=== PATIENT | male | born 1990 | race Hispanic/Latino ===

== ENCOUNTER 2023-12-01 20:41 | Emergency (ER) | payer SELFPAY ==
[2023-12-01] VITALS (7 sets, daily range): BP systolic 150–199; BP diastolic 103–124
--- NOTE | 2023-12-01 21:31 | ED.GENMED ---
History of Present Illness
General
Chief Complaint: Headache
Source: patient
Exam Limitations: none
Time Seen by Provider: 12/01/23 21:03
Travel History
Have you had any contact with someone who has COVID-19?: No
Do you have any symptoms of coronavirus? Fever > 100 degrees, chills, cough, shortness of breath, sore throat, loss of taste or smell, muscle aches, or headache?: No
History of Present Illness
History of Present Illness:
This is a 33 year old male that comes in with c/o headache. States that he also thinks his BP is elevated. States that he started with a headache on Monday night and it has not gone away. States that he has had headaches before but not like this.
States that the pain is in the Temporal area. States that light and sound really do not bother him. States that he use to take Lisinopril 40mg daily for his BP but he has been off this for a year. Denies any fever, chills, chest pain, SOB, abd
pain, nausea, vomiting, diarrhea, dizziness, urinary burning.
Past History
Past History
ED Past Medical History: HTN and NIDDM; Negative Asthma or [place]
ED Past Surgical History: Other (Gastric bypass, Umbilical hernia)
Social History
Tobacco: Non-smoker
Alcohol: None
Drug: None
Personal:
Living: with family
Employment: Other
Family History
Family History: Other
Review of Systems
Review of Systems
All Other Systems: ROS reviewed and negative except as documented in HPI and ROS
Constitutional: Reports no symptoms; Denies fever or chills
EENT: Reports no symptoms
Respiratory: Reports no symptoms; Denies cough or trouble breathing
Cardiac: Reports no symptoms; Denies chest pain
ABD/GI: Reports no symptoms; Denies abdominal pain, nausea, vomiting or diarrhea
: Reports no symptoms; Denies dysuria, frequency or urgency
Musculoskeletal: Reports no symptoms
Skin: Reports no symptoms
Neurological: Reports headache; Denies dizzy
Psychiatric: Reports no symptoms
Phy Exam
General Physical Exam
General Presentation: mild distress
General age: appears stated age
General Skin: warm and dry
General Habitus: normal
General Mental: alert
General Hydration: appears well hydrated
ENT Exam
ENT Exam: TM's normal, pharynx normal and neck supple
Eye Exam
Eye Exam: EOMI
Cardiovascular Exam
Cardiovascular Exam: regular rate/rhythm, no edema, no murmur and normal peripheral pulses
Pulmonary Exam
Pulmonary Exam: lungs clear, no respiratory distress, no rales, chest non tender, no crackles, no rhonchi, no wheezing and no cough
Gastrointestinal Exam
Gastrointestinal Exam: normal bowel sounds, non tender, soft, no organomegaly, no pulsatile mass and non distended
Musculoskeletal Exam
Musculoskeletal Exam: full ROM and no edema
Skin Exam
Skin Exam: normal color, warm/dry, no rash and no petechia
Psychiatric Exam
Psychiatric Exam: normal mood/affect
Course
Orders/Labs/Results
Orders:
Orders
12/01/23 21:30
CT Head W/o Iv Contrast Urgent
Comment:
Reason For Exam: Headache since Monday
Acetaminophen [Tylenol] 1,000 mg PO NOW STA
HydrALAZINE [Apresoline] 5 mg IV NOW STA
12/01/23 21:31
Lisinopril [Zestril] 20 mg PO NOW STA
12/01/23 21:40
Dexamethasone Sod Phosphate [Decadron] 20 mg IV NOW STA
Diphenhydramine [Benadryl] 25 mg IV NOW STA
12/01/23 21:46
Electrocardiogram (*1) Urgent
Reason for Study: Hypertension, Benign
EKG- Treatment ONCE
12/01/23 21:52
C-Reactive Protein Urgent
Comment: ADD ON
Complete Blood Count/With Diff Urgent
Comprehensive Metabolic Panel Urgent
Sed Rate [Erythrocyte Sed Rate] Urgent
12/01/23 22:37
Add On- LAB Urgent
Comments:: blood in lab
Tests Added?: crp
12/01/23 22:38
HydrALAZINE [Apresoline] 10 mg IV NOW STA
12/01/23 22:42
HydrALAZINE [Apresoline] 20 mg .ROUTE .STK-MED ONE
12/01/23 22:43
HydrALAZINE [Apresoline] 5 mg IV NOW STA
12/01/23 23:27
Lisinopril [Zestril] 20 mg PO NOW STA
Abnormal Lab Results
12/01/23
21:52
MPV 10.6 H fL
(7.4-10.4)
Absolute Monos (auto) 0.7 H 10^3/uL
(0.1-0.6)
12/01/23 21:52
12/01/23 21:52
labs unremarkable. Sed rate normal at 5, CRP <5.0
Vital Signs
Initial and Last Documented VS:
Initial Vital Signs
Temp Pulse Resp BP Pulse Ox
98.3 F 82 18 199/122 100
12/01/23 20:44 12/01/23 20:44 12/01/23 20:44 12/01/23 20:44 12/01/23 20:44
Last Documented Vital Signs
Temp Pulse Resp BP Pulse Ox
98.3 F 72 18 150/103 98
12/01/23 20:44 12/01/23 22:00 12/01/23 20:44 12/01/23 23:00 12/01/23 22:00
MDM/Problems Addressed
Differential Diagnosis Includes:
Hypertension, Headaches,
MDM/Problems Addressed:
This is a 33 year old male that comes in with c/o headache since Monday. States that he has had headaches before but they normally go away. This has not gone away. States that he feels that his BP is also elevated. Patient stopped his Lisinopril
40mg daily a year ago.
Will check labs. CT head and medicate to get BP down.
Back into see patient. Patient was sleeping. Awakened and states that his headache is better. Explained that his BP is down to 157/107. Will give Lisinopril 20mg now as patient was taking 40mg in the past. Will recheck BP and if his Diastolic is
lower will discharge home. Explained to patient how to check his BP at home and to return if his Diastolic is again elevated.
Chronic conditions affecting care: HTN
Acute Exacerbation and/or Progression of Chronic Illness: HTN
*Radiology
Radiology exam reviewed: radiology read reviewed (CT head -No acute intracranial abnormality. )
*Pulse Oximetry
Patient hypoxic: no
*Program Analyst Interpretation
Rate: Program Analyst- N/A
*Critical Care Note
Total Time (30-74mins, 75-104mins- exclusive of procedures): Not Applicable
ED Attending Note
-
Portions of this chart may have been created with voice recognition software.� Occasional wrong word or��sound alike� substitutions may have occurred due to the inherent limitations of voice recognition software.
Discharge Plan
Departure
Patient Disposition: Home (Routine Discharge)
Date of Disposition: 12/02/23
Time of Disposition: 00:04
Patient with high blood pressure during this ER visit?: Yes
Condition: Good
Covid-19: Not Applicable
Discharge Problem:
Headache, Hypertension
Instructions: High Blood Pressure (DC), Headache, Adult (DC), BLOOD PRESSURE
Prescriptions:
New
lisinopril 40 mg tablet
40 mg PO DAILY Qty: 30 0RF
No Action
penicillin V potassium 500 mg tablet
500 mg PO TID 10 Days Qty: 29 0RF
Referrals:
NONE,* [Family Provider] -
Activity Restrictions/Additional Instructions:
As discussed, your blood work is normal along with the CT of the head. Your BP was every elevated and you have been given medication to help this come down. You also have a prescription for Lisinopril 40mg to use daily. Please follow up with the
family doctor in 2-3 days for recheck. Please check your BP at home after sitting for 5 min in a chair with feet flat on the floor and arm extended ad level with the heart. Please increase your water intake to 8-8oz glasses daily. Please watch your
sodium intake as this will also elevate your BP. PLEASE DO NOT USE ANY ALEVE, ADVIL OR MOTRIN THIS WILL ALSO INCREAES YOUR BLOOD PRESSURE. IF YOU HAVE ANY OTHER CONCERNS PLEASE RETURN TO THE EMERGENCY ROOM.
Interventions
Interventions:
*Risk Screen - Suicide Last Done: 12/01/23 21:54
*General Assessment Last Done: 12/01/23 21:54
*Neglect/Abuse Screening Last Done: 12/01/23 21:54
*ED COVID-19 Vaccine History Last Done: 12/01/23 21:54
ED- Neurological Assessment Last Done: 12/01/23 21:54
Discharge Date and Time
Print Language: FRENCH
[2023-12-01] MEDS: DECADRON 20 MG IV (21:44)
[2023-12-01] MEDS: BENADRYL 25 MG IV (21:44)
[2023-12-01] MEDS: ZESTRIL 20 MG PO ×2 (21:44→23:33)
[2023-12-01] MEDS: APRESOLINE 5 MG IV ×2 (21:44→22:44)
[2023-12-01 21:59] LABS: % Basophils 0.7 % (0-2); % Eosinophils 1.9 % (0-6); % Immature Granulocytes 0.3 % (0-0.5); % Lymphocytes 31.9 % (20.5-51.1); % Monocytes 8.3 % (1.7-9.3); % Neutrophils 56.9 % (42.2-75.2); Absolute Basophils 0.1 10^3/uL (0-0.2); Absolute Eosinophils 0.2 10^3/uL (0-0.7); Absolute Lymphocytes 2.9 10^3/uL (1.2-3.4); Absolute Monocytes 0.7 10^3/uL (0.1-0.6); Absolute Neutrophils 5.1 10^3/uL (1.4-6.5); Hematocrit 44.4 % (39.0-52.0); Hemoglobin 15.8 g/dL (13.0-18.0); Mean Corp Hgb Conc. 35.6 g/dL (33.0-37.0); Mean Corpuscular Hgb 28.7 pg (27.0-31.0); Mean Corpuscular Volume 80.6 fL (80.0-94.0); Mean Platelet Volume 10.6 fL (7.4-10.4); Nucleated Red Blood Cells % 0 % (-); Platelet Count 262 10^3/uL (130-400); Red Blood Cell Count 5.51 10^6/uL (4.70-6.10); Red Cell Dist. Width 12.4 % (11.5-14.5); White Blood Cell Count 8.9 10^3/uL (4.8-10.8)
[2023-12-01 22:13] LABS: ALT (SGPT) 16 U/L (0-50); AST (SGOT) 27 U/L (17-59); Albumin 4.4 g/dl (3.5-5.0); Alkaline Phosphatase 97 U/L (38-126); Blood Urea Nitrogen 17 mg/dl (9-20); Calcium 9.8 mg/dl (8.4-10.2); Carbon Dioxide 28 mmol/L (22-30); Chloride 100 mmol/L (98-107); Glucose 92 mg/dl (70-99); Potassium 3.8 mmol/L (3.5-5.1); Sodium 137 mmol/L (135-145); Total Bilirubin 0.4 mg/dl (0.2-1.3); Total Protein 7.6 g/dl (6.3-8.2); eGFR > 60.00
[2023-12-01 22:14] LABS: Erythrocyte Sed Rate 5 mm/hour (0-20)
[2023-12-01 23:46] LABS: C-Reactive Protein < 5.00 mg/L (0.0-10.00)
[2023-12-02] VITALS: BP 163/106
== END 2023-12-02 00:28 | disposition home or self-care (01) ==
LOC: EMR 20:41
PROVIDERS: Clinical Nurse Specialist Family Health; EMERGENCY PHYSICIAN Emergency Medicine
DX: R51.9 Headache, unspecified (principal); I10 Essential (primary) hypertension; E11.9 Type 2 diabetes mellitus without complications; Z98.84 Bariatric surgery status
CPT/HCPCS: 99284; 96374; 96375 ×3; 70450; 80053; 85025; 85652; 86140; 93005

== ENCOUNTER 2024-11-03 20:56 | Emergency (ER) | payer SELFPAY ==
[2024-11-03 20:58] VITALS: BP 206/128
[2024-11-03 21:40] VITALS: BMI 33.5
[2024-11-03] MEDS: NSS 1000 IV (21:46)
[2024-11-03] MEDS: BENADRYL 25 MG IV (21:47)
[2024-11-03] MEDS: TRANDATE 10 MG IV (21:50)
[2024-11-03] MEDS: TORADOL 15 MG IV (21:57)
[2024-11-03 21:59] LABS: % Basophils 0.7 % (0-2); % Eosinophils 2.2 % (0-6); % Immature Granulocytes 0.1 % (0-0.5); % Lymphocytes 37.3 % (20.5-51.1); % Monocytes 8.2 % (1.7-9.3); % Neutrophils 51.5 % (42.2-75.2); Absolute Basophils 0.1 10^3/uL (0-0.2); Absolute Eosinophils 0.2 10^3/uL (0-0.7); Absolute Lymphocytes 3.3 10^3/uL (1.2-3.4); Absolute Monocytes 0.7 10^3/uL (0.1-0.6); Absolute Neutrophils 4.5 10^3/uL (1.4-6.5); Hematocrit 46.3 % (39.0-52.0); Hemoglobin 15.7 g/dL (13.0-18.0); Mean Corp Hgb Conc. 33.9 g/dL (33.0-37.0); Mean Corpuscular Hgb 28.2 pg (27.0-31.0); Mean Corpuscular Volume 83.1 fL (80.0-94.0); Mean Platelet Volume 10.4 fL (7.4-10.4); Nucleated Red Blood Cells % 0 % (-); Platelet Count 256 10^3/uL (130-400); Red Blood Cell Count 5.57 10^6/uL (4.70-6.10); Red Cell Dist. Width 12.9 % (11.5-14.5); White Blood Cell Count 8.8 10^3/uL (4.8-10.8)
[2024-11-03] MEDS: REGLAN 10 MG IV (21:59)
[2024-11-03 22:00] VITALS: BP 192/129
--- NOTE | 2024-11-03 22:09 | EDRN ---
Pt says he has had a headache since this morning for which he took excedrin, last dose around 1845. Medication not helping which prompted ED visit. Pt says bright lights bother his eyes, suggested pt not watch TV and use his cell phone which can
cause eye strain but he said those lights don't bother him. Pt with hx htn and he does not take any medication for it, does not check his bp 'I don't know where the machine is' and does not go to a doctor for it to be checked. Discussed danger of
uncontrolled HTN with pt. Pt denies cp, sob, n/v, dizziness.
[2024-11-03 22:21] LABS: ALT (SGPT) 17 U/L (0-50); AST (SGOT) 25 U/L (17-59); Albumin 4.1 g/dl (3.5-5.0); Alkaline Phosphatase 74 U/L (38-126); Blood Urea Nitrogen 16 mg/dl (9-20); Calcium 9.2 mg/dl (8.4-10.2); Carbon Dioxide 30 mmol/L (22-30); Chloride 102 mmol/L (98-107); Estimated Creatinine Clearance 107 ml/min; Glucose 83 mg/dl (70-99); Potassium 3.9 mmol/L (3.5-5.1); Sodium 138 mmol/L (135-145); Total Bilirubin 0.5 mg/dl (0.2-1.3); Total Protein 7.2 g/dl (6.3-8.2); eGFR > 60.00
[2024-11-03 22:30] VITALS: BP 174/120
--- NOTE | 2024-11-03 22:50 | ED.GENMED ---
History of Present Illness
General
Chief Complaint: Headache
Time Seen by Provider: 11/03/24 21:19
History of Present Illness
History of Present Illness:
34-year-old male with history of hypertension, not on medications, presenting for headache. Patient reports since this morning he has been having a frontal headache which has not been going away with Excedrin. Reports history of headaches, however
there is usually not stay this long. He thinks it is from his blood pressure. Notes history of blood pressure issues, is supposed be on lisinopril, however took himself off the medication. Denies vision changes. Denies weakness or numbness to
extremities. Denies chest pain or difficulty breathing. Denies fever or neck pain. Denies additional acute medical complaints
Past History
Past History
ED Past Medical History: HTN and NIDDM; Negative Asthma or [place]
ED Past Surgical History: Other (Gastric bypass, Umbilical hernia)
Social History
Tobacco: Non-smoker
Alcohol: None
Drug: None
Personal:
Living: with family
Employment: Other
Family History
Family History: Other
Phy Exam
Physical Exam
Physical Exam:
General: Well-appearing, no clinical signs of dehydration, nontoxic and in no acute distress
HEENT: protecting airway
Neck: appears supple
CV: Normal heart rate, regular rhythm, no evidence of cyanosis
Resp: No accessory muscle use, no increased work of breathing, lungs clear to auscultation bilaterally
Abd: Soft and non-distended, no tenderness to palpation, normal bowel sounds
Extremities: No deformities, no swelling, no erythema, pulses and sensation intact
Neuro: alert, no focal neurologic deficit
: deferred
Rectal: deferred
Psych: Normal affect
Skin: Intact
Course
Orders/Labs/Results
Orders:
Orders
11/03/24 21:00
EKG [Electrocardiogram (*1)] Urgent
Reason for Study: Hypertension, Benign
11/03/24 21:01
EKG- Treatment ONCE
11/03/24 21:33
Electrocardiogram (*1) Stat
Reason for Study: Other
Other Reason for Exam: Headache
CT Head W/o Iv Contrast Urgent
Comment:
Reason For Exam: headache, uncontrolled HTN
0.9% Sodium Chloride 1000 ml [Nss] 1,000 ml IV BOLUS
Diphenhydramine [Benadryl] 25 mg IV NOW STA
Ketorolac [Toradol] 15 mg IV NOW STA
Metoclopramide [Reglan] 10 mg IV NOW STA
11/03/24 21:34
Labetalol HCl [Trandate] 10 mg IV NOW STA
11/03/24 21:46
Complete Blood Count/With Diff Urgent
Comprehensive Metabolic Panel Urgent
Abnormal Lab Results
11/03/24
21:46
Absolute Monos (auto) 0.7 H 10^3/uL
(0.1-0.6)
11/03/24 21:46
11/03/24 21:46
Vital Signs
Initial and Last Documented VS:
Initial Vital Signs
Temp Pulse Resp BP Pulse Ox
97.9 F 70 14 206/128 98
11/03/24 20:58 11/03/24 20:58 11/03/24 20:58 11/03/24 20:58 11/03/24 20:58
Last Documented Vital Signs
Temp Pulse Resp BP Pulse Ox
97.9 F 77 17 151/114 99
11/03/24 20:58 11/03/24 23:30 11/03/24 23:30 11/03/24 23:30 11/03/24 22:00
MDM/Problems Addressed
MDM/Problems Addressed:
34-year-old male with history of untreated hypertension presenting for headache. Vital signs significant for hypertension.
On exam patient is resting comfortably, no acute distress or discomfort. Regarding headache, symptom presentation and physical exam appears most consistent with tension versus migrainous headache. No concern for infectious etiology, afebrile, no
meningeal signs. No focal neurologic deficits on exam or concern for acute central neurologic process. No report of trauma or concern for any acute traumatic intracranial abnormality. No tenderness to the temporal arteries, without concern for
temporal arteritis. Blood pressure however is markedly elevated which could be contributing to headache. Suspect uncontrolled hypertension for medication noncompliance. Lower suspicion for hypertensive urgency or emergency. Will screen with
laboratory analysis. Will administer antihypertensive medication. In the setting of uncontrolled hypertension and headache, will screen with CT brain imaging. Will administer migraine cocktail and labetalol for blood pressure control
Blood pressure slightly improved. CT brain without acute intracranial abnormality. Labs without any endorgan dysfunction. Again without present concern for hypertensive urgency or emergency. Feel stable for discharge, however will represcribe
patient's antihypertensive medication. Patient was seen in the emergency department in November 2023 for the same symptoms, has not been following with a primary care provider. Conversation had with patient regarding the risks of untreated
hypertension including heart attack, stroke, kidney failure. Patient agrees to follow-up with her primary care doctor. Return precautions discussed and patient verbalized understanding
*EKG
Interpreted by ED Provider?: Yes
EKG Intrepretation Date: 11/03/24
EKG Intrepretation Time: 23:01
Interpretation: normal
Comparison EKG: no changes (12/01/23)
Heart Rate: 66
Rate: normal
Rhythm: sinus
[place]: normal axis
Interval: normal interval
QRS Pattern: normal QRS
Ischemia: no ischemia
*Critical Care Note
Total Time (30-74mins, 75-104mins- exclusive of procedures): Not Applicable
ED Attending Note
-
Portions of this chart may have been created with voice recognition software.� Occasional wrong word or��sound alike� substitutions may have occurred due to the inherent limitations of voice recognition software.
Discharge Plan
Departure
Patient Disposition: Home (Routine Discharge)
Date of Disposition: 11/03/24
Time of Disposition: 23:38
Patient with high blood pressure during this ER visit?: Yes
Condition: Good
Discharge Problem:
Uncontrolled hypertension, Headache, tension-type
Instructions: Headache, Adult (DC), BLOOD PRESSURE
Prescriptions:
New
lisinopril 40 mg tablet
40 mg PO DAILY Qty: 30 0RF
Referrals:
[facility] [Provider Group]
UNKNOWN - PT NOT,INTERVIEWE [Family Provider] -
Activity Restrictions/Additional Instructions:
You were seen in the emergency department for headache and high blood pressure
You were found to have normal blood work and CT imaging of your brain. However your blood pressure was very elevated. He suspect that you have hypertension which needs to be treated with antihypertensive medications. If your blood pressure goes
untreated, you are at risk for heart attack, stroke, kidney failure. Please follow-up with your primary care doctor for management of your blood pressure
Return to the emergency department for any worsening of your symptoms, or any development of chest pain, difficulty breathing, abdominal pain with persistent vomiting and inability to tolerate food or liquid by mouth (concern for dehydration),
weakness, headache or confusion, fever greater than 100.4, or any additional symptoms that are concerning to you.
Thank you for choosing [facility].
Interventions
Interventions:
*Risk Screen - Suicide Last Done: 11/03/24 20:58
*General Assessment Last Done: 11/03/24 20:58
*Neglect/Abuse Screening Last Done: 11/03/24 20:58
ED- Fall Risk Assessment Last Done: 11/03/24 22:05
*ED COVID-19 Vaccine History Last Done: 11/03/24 21:40
*Nursing Disposition Last Done: 11/03/24 23:52
ED- Neurological Assessment Last Done: 11/03/24 22:05
Discharge Date and Time
Discharge Date/Time: 11/03/24 23:52
Print Language: ECUADOREAN
[2024-11-03 23:00] VITALS: BP 168/113
[2024-11-03 23:16] VITALS: BP 162/117
[2024-11-03 23:30] VITALS: BP 151/114
== END 2024-11-03 23:52 | disposition home or self-care (01) ==
LOC: EMR 20:56
PROVIDERS: EMERGENCY PHYSICIAN Student in an Organized Health Care Education/Training Program
DX: G44.209 Tension-type headache, unspecified, not intractable (principal); I10 Essential (primary) hypertension; T46.4X6A Underdosing of angiotensin-converting-enzyme inhibitors, initial encounter; Z91.128 Patient's intentional underdosing of medication regimen for other reason; E11.9 Type 2 diabetes mellitus without complications; Z98.84 Bariatric surgery status
CPT/HCPCS: 99284; 96374; 96375 ×3; 96361; 70450; 80053; 85025; 93005

== ENCOUNTER 2024-11-05 16:29 | Emergency (ER) | payer SELFPAY ==
[2024-11-05 16:32] VITALS: BP 179/122
[2024-11-05 16:54] LABS: % Basophils 0.6 % (0-2); % Eosinophils 1.4 % (0-6); % Immature Granulocytes 0.3 % (0-0.5); % Lymphocytes 33.4 % (20.5-51.1); % Monocytes 8.1 % (1.7-9.3); % Neutrophils 56.2 % (42.2-75.2); Absolute Basophils 0.1 10^3/uL (0-0.2); Absolute Eosinophils 0.1 10^3/uL (0-0.7); Absolute Lymphocytes 2.6 10^3/uL (1.2-3.4); Absolute Monocytes 0.6 10^3/uL (0.1-0.6); Absolute Neutrophils 4.4 10^3/uL (1.4-6.5); Hematocrit 44.5 % (39.0-52.0); Hemoglobin 15.2 g/dL (13.0-18.0); Mean Corp Hgb Conc. 34.2 g/dL (33.0-37.0); Mean Corpuscular Hgb 28.7 pg (27.0-31.0); Nucleated Red Blood Cells % 0 % (-); Platelet Count 231 10^3/uL (130-400); Red Cell Dist. Width 13.2 % (11.5-14.5); White Blood Cell Count 7.8 10^3/uL (4.8-10.8)
[2024-11-05 17:04] LABS: ALT (SGPT) 22 U/L (0-50); AST (SGOT) 31 U/L (17-59); Albumin 4.5 g/dl (3.5-5.0); Alkaline Phosphatase 69 U/L (38-126); Blood Urea Nitrogen 18 mg/dl (9-20); Calcium 9.5 mg/dl (8.4-10.2); Carbon Dioxide 29 mmol/L (22-30); Chloride 100 mmol/L (98-107); Glucose 98 mg/dl (70-99); Potassium 4.2 mmol/L (3.5-5.1); Sodium 137 mmol/L (135-145); Total Bilirubin 0.7 mg/dl (0.2-1.3); Total Protein 7.4 g/dl (6.3-8.2); eGFR > 60.00
--- NOTE | 2024-11-05 19:14 | ED.GENMED ---
History of Present Illness
General
Chief Complaint: Blood Pressure Problem
Source: patient
Exam Limitations: none
Time Seen by Provider: 11/05/24 18:37
Nursing documentation reviewed up to this point in time: agreed with
History of Present Illness
History of Present Illness:
This is a 34 y/o male with pmh of htn, insulin dependent diabetes, who presents to the ER today with concerns of high blood pressure at home. Patient reports that 2 days ago, he started to have a headache and was concerned that it might have been
his blood pressure. He went to emergency department and obtain a CAT scan of the head which was normal. He was restarted on lisinopril. He currently takes 40 mg of lisinopril. He has an appointment scheduled with his primary care provider on
December 12 for his blood pressure. He reports that he was doing a routine blood pressure check this morning and noted that his systolic blood pressure was around 200 and so he reported to the emergency department. He currently denies headache,
chest pain, shortness of breath, dizziness, lightheadedness, syncopal episodes. He states that he feels well.
Past History
Past History
ED Past Medical History: HTN and NIDDM; Negative Asthma or [place]
ED Past Surgical History: Other (Gastric bypass, Umbilical hernia)
Social History
Tobacco: Non-smoker
Alcohol: None
Drug: None
Personal:
Living: with family
Employment: Other
Family History
Family History: Other
Review of Systems
Review of Systems
All Other Systems: ROS reviewed and negative except as documented in HPI and ROS
Phy Exam
Physical Exam
Physical Exam:
General: Patient is well appearing and in no acute distress; non-toxic
Skin: Warm and dry, no rashes or lesions
Head: Normocephalic, atraumatic
Eyes: Sclera non-icteric. EOMs intact.
Cardiac: Regular rate and rhythm, no murmurs
Peripheral Vascular: No lower extremity swelling or edema
Pulm: Normal respiratory effort, no wheezes, rales, rhonchi
Neuro: CN II-XII intact, no focal neurologic deficits.
Psychiatric: Appropriate mood and affect.
Course
Orders/Labs/Results
Orders:
Orders
11/05/24 16:34
Electrocardiogram (*1) Urgent
Reason for Study: Hypertension, Benign
EKG- Treatment ONCE
11/05/24 16:43
Complete Blood Count/With Diff Urgent
Comprehensive Metabolic Panel Urgent
11/05/24 16:43
11/05/24 16:43
Vital Signs
Blood pressure: 165/115
Initial and Last Documented VS:
Initial Vital Signs
Temp Pulse Resp BP Pulse Ox
97.4 F 67 16 179/122 100
11/05/24 16:32 11/05/24 16:32 11/05/24 16:32 11/05/24 16:32 11/05/24 16:32
Last Documented Vital Signs
Temp Pulse Resp BP Pulse Ox
97.4 F 67 16 165/115 100
11/05/24 16:32 11/05/24 16:32 11/05/24 16:32 11/05/24 19:28 11/05/24 16:32
MDM/Problems Addressed
Differential Diagnosis Includes:
Essential hypertension, pain induced hypertension, renal artery stenosis, hypertensive urgency/emergency
MDM/Problems Addressed:
34-year-old male with past medical history of hypertension presents emergency department with concerns of elevated blood pressure readings at home. He reports that his blood pressure at home systolically was in the 200s. On arrival to emergency
department, his blood pressure was 179/122. On my recheck, his blood pressure is 165/115 without intervention. He is currently asymptomatic. CBC and CMP unremarkable. EKG demonstrates normal sinus rhythm with no concerning ischemic findings.
Reviewed this case with my attending. Decision was made to start patient on amlodipine daily added to his blood pressure regimen should he note another at home reading a systolic pressure 200. Advised patient to keep a log of his blood pressures
at home so that he can bring him to his primary care appointment. Patient stable for discharge. Return precautions discussed.
Chronic conditions affecting care:
htn, diabetes
*Pulse Oximetry
Patient hypoxic: no
*EKG
Interpreted by ED Provider?: Yes
EKG Intrepretation Date: 11/05/24
Interpretation: normal
Comparison EKG: no changes
Heart Rate: 66
Rate: normal
Rhythm: sinus
[place]: normal axis
*Critical Care Note
Total Time (30-74mins, 75-104mins- exclusive of procedures): Not Applicable
Data Reviewed
Review of Other/Old Records Reveals: Records (Reviewed ER physician documentation from 11/03/2024 patient seen for headache and hypertension was given labetalol emergency department and migraine cocktail was discharged with normal CT)
Source: patient and records
Patient Management
Escalation/DeEscalation of care consider admission/obs:
Admit not indicated, patient stable for discharge
ED Attending Note
-
Portions of this chart may have been created with voice recognition software.� Occasional wrong word or��sound alike� substitutions may have occurred due to the inherent limitations of voice recognition software.
Discharge Plan
Departure
Patient Disposition: Home (Routine Discharge)
Date of Disposition: 11/05/24
Time of Disposition: 19:37
Patient with high blood pressure during this ER visit?: Yes
Condition: Good
Discharge Problem:
Essential hypertension
Instructions: BLOOD PRESSURE
Prescriptions:
New
amlodipine 5 mg tablet
5 mg PO DAILY Qty: 30 0RF
No Action
lisinopril 40 mg tablet
40 mg PO DAILY Qty: 30 0RF
Referrals:
NONE,* [Family Provider] -
Activity Restrictions/Additional Instructions:
Amlodipine has been sent to your pharmacy. You can start taking this medication once daily in the evening for one month trial should your systolic blood pressure started to creep up and return to 200 again. Please take your blood pressure once
daily in the morning and keep a log with the date to bring to your primary care provider.
PLEASE RETURN EMERGENCY DEPARTMENT SHOULD YOU DEVELOP CHEST PAIN, SHORTNESS OF BREATH, HEADACHE, WEAKNESS IN ONE-SIDED BODY VERSUS THE OTHER, DIFFICULTY SPEAKING, CONFUSION, INABILITY TO TOLERATE ORAL INTAKE, OR ANY OTHER SIGNS OR SYMPTOMS WORRISOME
TO YOU.
Interventions
Interventions:
*Risk Screen - Suicide Last Done: 11/05/24 16:35
*General Assessment Last Done: 11/05/24 19:25
*Neglect/Abuse Screening Last Done: 11/05/24 16:35
*ED- Fall Risk Assessment Last Done: 11/05/24 19:25
*ED COVID-19 Vaccine History Last Done: 11/05/24 19:25
*Nursing Disposition Last Done: 11/05/24 20:09
ED- Cardiac Assessment Last Done: 11/05/24 19:25
ED- Neurological Assessment Last Done: 11/05/24 19:25
ED- Pulmonary Assessment Last Done: 11/05/24 19:28
Discharge Date and Time
Discharge Date/Time: 11/05/24 19:45
Print Language: CAMBOD[place]
[2024-11-05 19:28] VITALS: BP 165/115
== END 2024-11-05 19:45 | disposition home or self-care (01) ==
LOC: EMR 16:29
PROVIDERS: Emergency Medicine; EMERGENCY PHYSICIAN Emergency Medicine
DX: I10 Essential (primary) hypertension (principal); E11.9 Type 2 diabetes mellitus without complications; Z98.84 Bariatric surgery status
CPT/HCPCS: 99283; 80053; 85025; 93005